=== PATIENT | male | born 1970 | race Caucasian/White ===

== ENCOUNTER 2017-12-14 05:03 | Inpatient (IN) | payer OTHER ==
[~2017-12-14] VITALS: Ht 182.9 cm; Wt 106.4 kg
[~2017-12-14 05:03] MED LIST: CeFAZolin 2 GM/DEXTROSE 50 ML IV ONE; HYDR-3705 PO; NAPR220T57 PO; RINGERS SOLUTION,LACTATED 1,000 ML IV ONE
[2017-12-14] MEDS ORDERED: RINGERS SOLUTION,LACTATED 1,000 ML IV ONE ×2 (05:30→07:11)
[2017-12-14 05:53] LABS: BASOPHILS % (AUTO) 0.5 % (0.0-2.0); EOSINOPHILS % (AUTO) 3.2 % (1.0-6.0); HEMOGLOBIN 15.6 g/dL (13.5-17.5); LYMPHOCYTES # (AUTO) 2.7 K/uL (1.0-4.8); LYMPHOCYTES % (AUTO) 37.5 % (22.0-44.0); MEAN CORPUSCULAR HEMOGLOBIN 30.3 pg (26.0-34.0); MEAN CORPUSCULAR HGB CONC 34.7 G/dL (31.0-37.0); MEAN CORPUSCULAR VOLUME 87 fL (80-100); MONOCYTES # (AUTO) 0.5 K/uL (0.1-1.0); MONOCYTES % (AUTO) 6.6 % (2.0-9.0); NEUTROPHILS # (AUTO) 3.8 K/uL (1.8-7.7); NEUTROPHILS % (AUTO) 52.2 % (40.0-70.0); PLATELET COUNT (AUTO) 307 K/uL (150-450); RED BLOOD CELL COUNT(AUTO) 5.17 MIL/uL (4.50-5.90); RED CELL DISTRIBUTION WIDTH 13.5 % (11.5-14.5)
[2017-12-14] MEDS ORDERED: GUM MASTIC/STORAX/MSAL/ALCOHOL LIQUID 0.67 ML VIAL TP ONE (07:11)
[2017-12-14] MEDS ORDERED: BUPIVACAINE HCL 0.5% 50 ML VIAL ONE (07:11)
[2017-12-14] MEDS ORDERED: MUPIROCIN CALCIUM 2% 22 GM OINTMENT ONE (07:11)
[2017-12-14] MEDS ORDERED: VANCOMYCIN HCL 1 GM/VIAL ONE (07:11)
[2017-12-14] MEDS ORDERED: FentaNYL CITRATE-PF 100 MCG/2 ML VIAL IVP PRN (07:30)
[2017-12-14] MEDS ORDERED: MEPERIDINE-PF 25 MG/ML VIAL IVP PRN (07:30)
[2017-12-14] MEDS ORDERED: ACETAMINOPHEN 1000 MG/ISO-OSM 100 ML IV ONE (07:30)
[2017-12-14] MEDS ORDERED: BUPIVACAINE LIPOSOME/PF 1.3%-13.3MG/ML SUSPENSION 20 ML VIAL INJ ONE (07:30)
[2017-12-14] MEDS ORDERED: CYCLOBENZAPRINE HCL 10 MG TABLET PO ONE (07:30)
[2017-12-14] MEDS ORDERED: HYDROmorphone 2 MG/ML SYRINGE IVP PRN ×2 (07:30→09:45)
[2017-12-14] MEDS ORDERED: MICROFIBRILLAR COLLAGEN 1 GM PACKAGE TP ONE (07:56)
[2017-12-14] MEDS: OXYGEN THERAPY IH SCH ×2 (08:00→19:57)
[2017-12-14] MEDS ORDERED: MEPERIDINE-PF 25 MG/ML VIAL ONE (09:40)
[2017-12-14 10:52] VITALS: BP 140/91
[2017-12-14] MEDS ORDERED: CeFAZolin 1 GM/DEXTROSE 50 ML IV SCH (13:00)
[2017-12-14] MEDS: ACETAMINOPHEN 1000 MG/ISO-OSM 100 ML IV SCH ×2 (14:06→19:57)
[2017-12-14] MEDS: CeFAZolin 1 GM/DEXTROSE 50 ML IV SCH ×2 (14:43→20:40)
[2017-12-14 15:50] VITALS: BP 121/78
[2017-12-14] MEDS: CYCLOBENZAPRINE HCL 10 MG TABLET PO SCH (17:15)
[2017-12-14 19:58] VITALS: BP 133/73
[2017-12-14 23:59] VITALS: BP 122/70
[2017-12-15] MEDS: CYCLOBENZAPRINE HCL 10 MG TABLET PO SCH ×2 (00:01→08:57)
[2017-12-15] MEDS: ACETAMINOPHEN 1000 MG/ISO-OSM 100 ML IV SCH ×2 (01:31→08:57)
[2017-12-15 04:56] VITALS: BP 110/69
[2017-12-15] MEDS ORDERED: NEOSTIGMINE METHYLSULFATE 1 MG/ML 10 ML VIAL IVP ONE (05:52)
[2017-12-15] MEDS ORDERED: PROPOFOL 1% 20 ML VIAL IVP ONE (05:52)
[2017-12-15] MEDS ORDERED: FentaNYL CITRATE-PF 250 MCG/5 ML VIAL IVP ONE (05:52)
[2017-12-15] MEDS ORDERED: ONDANSETRON HCL 4 MG/2 ML VIAL IVP ONE (05:52)
[2017-12-15] MEDS ORDERED: METOCLOPRAMIDE HCL 5 MG/ML 2 ML VIAL IVP ONE (05:52)
[2017-12-15] MEDS ORDERED: GLYCOPYRROLATE 0.2 MG/ML VIAL IM ONE (05:52)
[2017-12-15] MEDS ORDERED: DEXAMETHASONE SOD PHOS 4 MG/ML VIAL IVP ONE (05:52)
[2017-12-15] MEDS ORDERED: HYDROmorphone 2 MG/ML SYRINGE IVP ONE (05:52)
[2017-12-15] MEDS ORDERED: ROCURONIUM BROMIDE 10 MG/ML 5 ML VIAL IVP ONE (05:52)
[2017-12-15] MEDS ORDERED: LIDOCAINE/PF 2% 5 ML VIAL IM ONE (05:52)
[2017-12-15] MEDS ORDERED: MIDAZOLAM HCL 2 MG/2 ML VIAL IVP ONE (05:52)
[2017-12-15 07:05] LABS: BASOPHILS % (AUTO) 0.1 % (0.0-2.0); EOSINOPHILS % (AUTO) 0 % (1.0-6.0); HEMATOCRIT 41.2 % (41-53); HEMOGLOBIN 13.9 g/dL (13.5-17.5); LYMPHOCYTES # (AUTO) 1.8 K/uL (1.0-4.8); LYMPHOCYTES % (AUTO) 13.3 % (22.0-44.0); MEAN CORPUSCULAR HEMOGLOBIN 30.1 pg (26.0-34.0); MEAN CORPUSCULAR HGB CONC 33.8 G/dL (31.0-37.0); MEAN CORPUSCULAR VOLUME 89 fL (80-100); MONOCYTES # (AUTO) 1.2 K/uL (0.1-1.0); MONOCYTES % (AUTO) 8.4 % (2.0-9.0); NEUTROPHILS # (AUTO) 10.7 K/uL (1.8-7.7); NEUTROPHILS % (AUTO) 78.2 % (40.0-70.0); PLATELET COUNT (AUTO) 286 K/uL (150-450); RED BLOOD CELL COUNT(AUTO) 4.63 MIL/uL (4.50-5.90); RED CELL DISTRIBUTION WIDTH 13.5 % (11.5-14.5)
[2017-12-15 07:18] LABS: ANION GAP 8 mmol/L (8-16); CALCIUM, TOTAL 8.4 mg/dL (8.8-10.5); CARBON DIOXIDE 26 mmol/L (22-29); CHLORIDE 101 mmol/L (98-107); CREATININE 0.98 mg/dL (0.60-1.30); GLOMERULAR FILTR. RATE CALC > 60 mL/min (>60); GLUCOSE,RANDOM 109 mg/dL (70-110); POTASSIUM 4.2 mmol/L (3.5-5.1); SODIUM SERUM 135 mmol/L (136-145); UREA NITROGEN, BLOOD 8 mg/dL (7-18)
[2017-12-15] MEDS: OXYGEN THERAPY IH SCH (08:00)
[2017-12-15 08:16] VITALS: BP 123/84
[2017-12-15] MEDS ORDERED: ENOXAPARIN SODIUM 30 MG/0.3 ML PF SYRINGE SQ SCH (09:00)
[2017-12-15 12:02] VITALS: BP 121/77
[2017-12-15] MEDS ORDERED: ASPI-891 PO (14:08)
== END 2017-12-15 14:25 | disposition home or self-care (01) | DRG 482 ==
LOC: SURGERY 05:03 → 6N 05:04
PROVIDERS: ADMIT Orthopaedic Surgery; ATTEND Orthopaedic Surgery
PROC: 0QR70JZ Replacement of Left Upper Femur with Synthetic Substitute, Open Approach (ICD-10-PCS; 2017-12-14)
PROC: 0QP704Z Removal of Internal Fixation Device from Left Upper Femur, Open Approach (ICD-10-PCS; principal; 2017-12-14 07:00)
DX: T84.89XA Other specified complication of internal orthopedic prosthetic devices, implants and grafts, initial encounter (principal); Y83.8 Other surgical procedures as the cause of abnormal reaction of the patient, or of later complication, without mention of misadventure at the time of the procedure; L91.0 Hypertrophic scar; M93.952 Osteochondropathy, unspecified, left thigh; Z79.891 Long term (current) use of opiate analgesic; Y92.89 Other specified places as the place of occurrence of the external cause; Z79.899 Other long term (current) drug therapy
CPT/HCPCS: 87081; 88300; 88304; 88311; 97116; 97161; C9290; G0238; G0378; J0131; J0690; J1100; J1170; J1650; J2175; J2250; J2405; J2704; J2765; J3010; J3370; J3490; J7120